=== PATIENT | female | born 1980 | race Caucasian/White ===

== ENCOUNTER → 2016-11-29 | Outpatient (CLI) | payer OTHER ==
[2016-11-29 16:56] LABS: HEMATOCRIT 37.3 % (36.0-47.0); HEMOGLOBIN 12.8 g/dL (12.0-15.5)
== END | disposition home or self-care (01) ==
LOC: LAB 16:23
PROVIDERS: ATTEND Nurse Practitioner Women's Health
DX: Z34.81 Encounter for supervision of other normal pregnancy, first trimester (principal); Z13.79 Encounter for other screening for genetic and chromosomal anomalies; O09.521 Supervision of elderly multigravida, first trimester; Z3A.00 Weeks of gestation of pregnancy not specified
CPT/HCPCS: 36415; 84443; 85014; 85018; 86593; 86703; 86762; 86803; 86900; 86901; 87340; 87341; 87491; 87591

== ENCOUNTER → 2017-03-10 | Outpatient (CLI) | payer OTHER ==
[2017-03-10 10:35] LABS: BASO % 0 % (0-3); EOS % 1 % (0-3); HEMATOCRIT 35.1 % (36.0-47.0); HEMOGLOBIN 12.2 g/dL (12.0-15.5); LYMPH # 1.9 x10^3/uL (1.0-4.8); LYMPH % 26 % (24-48); MEAN CORPUSCULAR HEMOGLOBIN 31 pg (25-35); MEAN CORPUSCULAR HGB CONC 35 g/dL (31-37); MEAN CORPUSCULAR VOLUME 89 fL (79-100); MONO % 5 % (0-9); NEUT % 68 % (31-73); PLATELET COUNT 187 x10^3/uL (140-400); RED BLOOD COUNT 3.97 x10^6/uL (3.50-5.40); RED CELL DISTRIBUTION WIDTH 12.9 % (11.5-14.5); WHITE BLOOD COUNT 7.3 x10^3/uL (4.0-11.0)
== END | disposition home or self-care (01) ==
LOC: LAB 09:23
PROVIDERS: ATTEND Obstetrics & Gynecology
DX: O09.90 Supervision of high risk pregnancy, unspecified, unspecified trimester (principal)
CPT/HCPCS: 36415; 82950; 85027; 86593; 86703; 86762; 86850; 86900; 86901; 87340; 87341

== ENCOUNTER 2017-03-23 10:22 | Observation (INO) | payer BC, OTHER ==
[2017-03-23] MEDS ORDERED: IV RINGERS,LACTATED 1000ML 1,000 ML IV SCH (11:24)
[2017-03-23 13:48] VITALS: BP 115/71
--- NOTE | 2017-03-23 15:20 | RAD ---
Obstetrical ultrasound, 03/23/2017: History: Low, soft cervix A limited exam of the cervical region was performed. The fetus was not examined at this time. Transabdominal views demonstrated a cervical length of 6.4 cm. This can be exaggerated by the distended urinary bladder.. Transvaginal scans were therefore performed demonstrating cervical length of 5.4 cm. No significant funneling of fluid into the internal cervical os is identified. IMPRESSION: The cervical length is within normal limits.
== END 2017-03-23 14:00 | disposition home or self-care (01) ==
LOC: 3 SO LND 10:22
PROVIDERS: ADMIT Obstetrics & Gynecology; ATTEND Obstetrics & Gynecology
DX: O26.892 Other specified pregnancy related conditions, second trimester (principal); R10.2 Pelvic and perineal pain; Z3A.26 26 weeks gestation of pregnancy
CPT/HCPCS: 76815; 96360; 96361; G0378; G0379; J7120